=== PATIENT | male | born 1965 | race Caucasian/White ===

== ENCOUNTER 2019-11-12 07:41 | Outpatient (CLI) | payer OTHER, SELFPAY ==
--- NOTE | ~2019-11-12 | MR_ITS ---
EXAMINATION: MR wrist RT wo con DATE: 11/12/2019 08:34 INDICATION: TECHNIQUE: Magnetic resonance imaging (MRI) of the right wrist was performed without intravenous contrast. Seque nces performed include axial PD-weighted FSE and PD-weighted FS FSE, coronal PD-weighted FS FSE and T 1-weighted FSE, and sagittal PD-weighted FS FSE and PD-weighted FSE. COMPARISON: None FINDINGS: Intrinsic ligaments: There is a partial tear of the dorsal band and central membranous components of the scapholunate liga ment. The lunotriquetral ligament is normal.. Triangular fibrocartilage complex (TFCC): There is a tear along the radial side of the central fiber cartilaginous disc of the triangular fibro cartilage complex. Partial tear at the foveal and ulnar styloid attachment of the triangular fibrocar tilage complex. The dorsal and palmar radioulnar ligaments are normal. The extensor carpi ulnaris ten don sheath, ulnar collateral ligament, meniscus homologue and ulnotriquetral ligaments are normal. Extensor wrist: Mild tendinopathy and longitudinal split tear of the extensor carpi ulnaris tendon with linear increa sed signal extending to the periphery of the tendon at the level of the ECU groove. The extensor tend ons of the wrist are otherwise normal. Flexor wrist: The flexor tendons of the wrist are normal.The carpal tunnel is unremarkable with a normal appearing median nerve. Guyon's canal: No abnormal mass or lesion within Guyon's canal. The ulnar nerve and artery are unremarkable. Bones/other: There is prominent marrow edema surrounding non to minimally displaced fracture at the base of the th ird and fourth metacarpals. Resolution is insufficient to assess for comminution or intra-articular e xtension. There is edema in the surrounding soft tissues. Alignment remains near-anatomic. No other f ractures identified. 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 Mild associated subarticular edema at both sides of the fifth ca rpometacarpal joint. IMPRESSION: 1. Nondisplaced minimally displaced age-indeterminate but likely relatively recent fractures at the b ase of the right third and fourth metacarpals. 2. Partial tears of the triangular fibrocartilage complex. 3. Partial tear of the scapholunate ligament. 4. Mild tendinopathy and longitudinal split tear of the extensor carpi ulnaris tendon. 5. Mild polyarticular osteoarthritis. Reviewed, dictated and finalized at location A. IMPRESSION: 1. Nondisplaced minimally displaced age-indeterminate but likely relatively rec ent fractures at the base of the right third and fourth metacarpals. 2. Partial tears of the triangular fibrocartilage complex. 3. Partial tear of the scapholunate ligament. 4. Mild tendinopathy and longitudinal split tear of the extensor carpi ulnaris tendon. 5. Mild polyarticular osteoarthritis.
== END 2019-11-12 07:42 | disposition home or self-care (01) ==
PROVIDERS: Visit Provider Orthopaedic Surgery
DX: S69.90XA Unspecified injury of unspecified wrist, hand and finger(s), initial encounter (principal); S62.342A Nondisplaced fracture of base of third metacarpal bone, right hand, initial encounter for closed fracture; S62.344A Nondisplaced fracture of base of fourth metacarpal bone, right hand, initial encounter for closed fracture; S63.591A Other specified sprain of right wrist, initial encounter; M19.031 Primary osteoarthritis, right wrist
CPT/HCPCS: 73221